=== PATIENT | female | born 1980 | race Two or more races ===

== ENCOUNTER 2019-08-10 14:01 | Emergency (ER) | payer MEDICAID ==
[~2019-08-10] VITALS: Ht 157.5 cm; Wt 76.7 kg
[2019-08-10] MEDS ORDERED: IBUPROFEN 800 MG TAB PO ONE (14:30)
[2019-08-10 16:00] VITALS: BP 140/89
[2019-08-10] MEDS ORDERED: ACETAMINOPHEN/CODEINE#3 (300/30mg) TAB PO ONE (17:30)
== END 2019-08-10 18:17 | disposition home or self-care (01) ==
LOC: ER 14:01
DX: J32.9 Chronic sinusitis, unspecified (principal); H93.12 Tinnitus, left ear; Z88.0 Allergy status to penicillin
CPT/HCPCS: 70450